=== PATIENT | female | born 1995 | race Hispanic/Latino ===

== ENCOUNTER 2019-08-22 12:27 | Emergency (ER) | payer OTHER ==
[2019-08-23 16:03] LABS: SARS-CoV-2 MS2 Positive; SARS-CoV-2 N Gene Negative; SARS-CoV-2 S Gene Negative; SARS-CoV-2 orf1ab Negative
== END 2019-08-22 13:05 | disposition home or self-care (01) ==
LOC: NAV ERS 12:27
DX: R50.9 Fever, unspecified (principal); R51 Headache; M79.10 Myalgia, unspecified site; Z20.828 Contact with and (suspected) exposure to other viral communicable diseases
CPT/HCPCS: 87635; 99283; U0003

== ENCOUNTER 2020-10-15 14:55 | Outpatient (CLI) | payer OTHER ==
[2020-10-15 15:26] LABS: BHCG - Serum POSITIVE (NEGATIVE); Pregs Control Bar Appear? YES (CONTROL BAR)
== END 2020-10-15 14:56 | disposition home or self-care (01) ==
LOC: NAV LAB 14:55
PROVIDERS: ATTEND Pathology Anatomic Pathology & Clinical Pathology
DX: Z00.00 Encounter for general adult medical examination without abnormal findings (principal)
CPT/HCPCS: 84703

== ENCOUNTER 2020-11-09 13:29 | Emergency (ER) | payer SELFPAY ==
[2020-11-10 19:14] LABS: SARS-CoV-2 PCR by NAA Not Detected (NotDetected)
== END 2020-11-09 14:38 | disposition home or self-care (01) ==
LOC: NAV ERS 13:29
DX: J06.9 Acute upper respiratory infection, unspecified (principal); Z20.822 Contact with and (suspected) exposure to COVID-19
CPT/HCPCS: 99283; U0003; U0005